=== PATIENT | male | born 1985 | race Two or more races ===

== ENCOUNTER 2025-05-14 01:57 | Emergency (ER) | payer BC, MEDICAID ==
[~2025-05-14] VITALS: Ht 180.3 cm; Wt 122.4 kg
[2025-05-14] MEDS: ONDANSETRON HCL 4 MG/2 ML VIAL IV ONE (02:28)
[2025-05-14] MEDS: MORPHINE SULFATE 4 MG/ML SYR/VIAL IV ONE (02:30)
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
[2025-05-14] MEDS: HYDROmorphone HCL 2 MG/ML VL/or syr IV ONE (03:10)
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
[2025-05-14 04:20] VITALS: TEMP 98.1
[2025-05-14 05:00] VITALS: BP 102/75; PULSE 98; RESP 19; O2SAT 97
== END 2025-05-14 06:50 | disposition home or self-care (01) ==
LOC: ER 01:57
DX: S93.491A Sprain of other ligament of right ankle, initial encounter (principal); S50.312A Abrasion of left elbow, initial encounter; S50.311A Abrasion of right elbow, initial encounter; Y04.0XXA Assault by unarmed brawl or fight, initial encounter; Y93.89 Activity, other specified; Y92.89 Other specified places as the place of occurrence of the external cause; Y99.8 Other external cause status
CPT/HCPCS: 73070; 73590; 73610; 96374; 96375; 99285; J1171; J2270; J2405